=== PATIENT | female | born 1975 | race African-American/Black ===

== ENCOUNTER 2017-05-23 10:42 | Emergency (ER) | payer MEDICAID | END 2017-05-23 12:49 | disposition home or self-care (01) | LOC: D.ER 10:42 | DX: S70.02XA Contusion of left hip, initial encounter (principal); W01.0XXA Fall on same level from slipping, tripping and stumbling without subsequent striking against object, initial encounter; Y93.89 Activity, other specified; Y92.89 Other specified places as the place of occurrence of the external cause; F17.200 Nicotine dependence, unspecified, uncomplicated ==

== ENCOUNTER 2017-08-01 10:21 | Emergency (ER) | payer MEDICAID | END 2017-08-01 14:50 | disposition home or self-care (01) | LOC: D.ER 10:21 | DX: S16.1XXA Strain of muscle, fascia and tendon at neck level, initial encounter (principal); V43.52XA Car driver injured in collision with other type car in traffic accident, initial encounter; Y93.89 Activity, other specified; Y92.410 Unspecified street and highway as the place of occurrence of the external cause ==

== ENCOUNTER 2018-11-04 11:44 | Inpatient (IN) | payer MEDICAID ==
[~2018-11-04] VITALS: Ht 152.4 cm; Wt 68.6 kg
--- NOTE | ~2018-11-04 | EC ---
PATIENT:TRINIDAD NEWMAN DATE OF SERVICE: 11/05/18 SEX: F MEDICAL RECORD: [id number] DATE OF : [birth year] LOCATION:D. D.212 AGE OF PATIENT: 43 ADMISSION DATE: 11/05/18 REFERRING PHYSICIAN: INTERPRETING PHYSICIAN: PATRICIA JUAREZ MD ECHOCARDIOGRAM REPORT ECHO CHARGES 4 ECHO COMPLETE Date: 11/05/18 CLINICAL DIAGNOSIS: POSSIBLE CVA ECHOCARDIOGRAPHIC MEASUREMENTS (adult normal given) AC root (d.<3.7cm) 3.1 cm LV Septum d (<1.2 cm> 1.1 cm Valve Excursion 1.4 cm LV Septum (systole) 1.5 cm Left Atria (s.<4.0cm> 3.0 cm LVPW d(<1.2cm) 1. cm RV (d.<2.3cm) 3.6 cm LVPW (sytole) 1.7 cm LV diastole(<5.6CM) 4.1 cm MV E-F(>70mm/sec) cm LV systole 2.4 cm LVOT Diameter 1.6 cm MV exc.(>10mm) 1.5 cm Est.ejection fraction (50-75%) % DOPPLER: LVIT cm/sec A 80.0 cm/sec E 79.0 cm/sec LA cm/sec RVSP 32 mmHg LVOT 90 cm/sec AOP1/2T m/s Asc. Ao 134 cm/sec RVOT 44 cm/sec RA cm/sec PA 103 cm/sec AV Gradient Peak 7.14 mmHg AV Mean 4.34 mmHg AV Area 1.3 cm MV Gradient Peak 4.30 mmHg MV Mean 1.70 mmHg MV Area cm COMMENTS: Kaiako Kura [place]: 2 FUAD NICOLE Plunket Nurse: 1 Dr. Juarez TAPE# PACS Pericardial Effusion N DATE OF SERVICE: FINDINGS: 1. Left ventricular chamber size is within normal limits. Left ventricular systolic function is normal. Overall ejection fraction is estimated at 60%. 2. Left atrium, right atrium, and right ventricular chamber sizes are within normal limit. 3. Valvular structures have normal structure and motion. 4. Doppler interrogation reveals mild mitral regurgitation and mild tricuspid regurgitation. No other valvular insufficiency or stenosis. Pulmonary systolic ECHOCARDIOGRAM REPORT [id number] TRINIDAD NEWMAN pressure is normal, estimated at 32 mmHg. 5. No evidence of pericardial effusion or left ventricular thrombus. 6. No cardiac source of neurologic emboli. TRANSINT:[id number] Voice Confirmation ID: [id number] DOCUMENT ID: [id number] PATRICIA JUAREZ MD CC: [id number] DICTATION DATE: 11/06/18 1245 SUPPOSITORY MOLDING MACHINE OPERATOR: 11/06/18 1620 DIS IN 11/06/[address] [facility] [address] [place] [id number]
--- NOTE | ~2018-11-04 | MORECARE ---
CASE MANAGEMENT DISCHARGE SUMMARY PATIENT: TRINIDAD NEWMAN UNIT: [id number] ADM DATE: 11/05/18 AGE: 43 : [birth year] SEX: F ROOM/BED: D.6462 AUTHOR: AIMEE,DOC PHYSICIAN: REFERRING PHYSICIAN: LORI PAYTON MD DATE OF SERVICE: 11/06/18 Discharge Plan Patient Name: TRINIDAD NEWMAN Facility: [facility]:[place] : 1975 Planned Disposition: Home Anticipated Discharge Date: 11/06/18 Discharge Date: Expected LOS: 1 Initial Reviewer: [email or web address] Initial Review Date: 11/06/2018 Generated: 11/06/18 1:36 pm Comments DCP- Discharge Planning Updated by [email or web address]: Jocelyne Duarte on 11/06/18 11:[address] Patient Name: TRINIDAD NEWMAN Admission Status: ER Accout number: [id number] Admission Date: 11-05-2018 : 1975 Admission Diagnosis: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 STATES SHE NEEDS A CANE TO HELP WITH HER BALANCE. DME PUT IN FOR A CANE TO [facility]. ORDERS FAXED TO [facility]. PATIENT CAN INTEL RECRUITER FROM [facility] AT TIME OF DISCHARGE. CM WILL FOLLOW AND ASSIST NEEDED WITH DC PLANNING/NEEDS. Pace Analyst: Jocelyne Duarte DCPIA - Discharge Planning Initial Assessment Updated by [email or web address]: Jocelyne Duarte on 11/06/18 12:28 pm * Is the patient Alert and Oriented? Yes * PCP [facility] * Pharmacy [facility], DAUGHTER, * Preadmission Environment Home with Family * ADLs Independent * Equipment None * Community resources currently utilized None * Additional services required to return to the preadmission environment? No * Can the patient safely return to the preadmission environment? Yes * Has this patient been hospitalized within the prior 30 days at any hospital? No Last DP export: 11/06/18 11:27 Patient Name: TRINIDAD NEWMAN Page [id number] at 1236 All edits/amendments must be made on the electronic document DICTATION DATE: 11/06/18 1236 CLOTH MEASURER: SIXTO 11/06/18 1236 RPT#: [id number] DC DATE: STATUS: ADM IN [facility] [address] [place] [address] END OF REPORT
--- NOTE | ~2018-11-04 | MORECARE ---
CASE MANAGEMENT DISCHARGE SUMMARY PATIENT: TRINIDAD NEWMAN UNIT: [id number] ADM DATE: 11/05/18 AGE: 43 : [birth year] SEX: F ROOM/BED: D.3046 AUTHOR: AIMEEDOC PHYSICIAN: REFERRING PHYSICIAN: LORI PAYTON MD DATE OF SERVICE: 11/09/18 Discharge Plan Patient Name: TRINIDAD NEWMAN Facility: [facility]:[place] : 1975 Planned Disposition: Home Anticipated Discharge Date: 11/06/18 Discharge Date: 11/06/2018 Expected LOS: 1 Initial Reviewer: [email or web address] Initial Review Date: 11/06/2018 Generated: 11/09/18 12:21 pm Comments DCP- Discharge Planning Updated by [email or web address]: Jocelyne Duarte on 11/06/18 11:[address] Patient Name: TRINIDAD NEWMAN Admission Status: ER Accout number: [id number] Admission Date: 11-05-2018 : 1975 Admission Diagnosis: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 STATES SHE NEEDS A CANE TO HELP WITH HER BALANCE. DME PUT IN FOR A CANE TO [facility]. ORDERS FAXED TO [facility]. PATIENT CAN FORMING YARDAGE CONTROL OPERATOR FROM [facility] AT TIME OF DISCHARGE. CM WILL FOLLOW AND ASSIST NEEDED WITH DC PLANNING/NEEDS. Steel Welder: Jocelyne Duarte DCPIA - Discharge Planning Initial Assessment Updated by [email or web address]: Jocelyne Duarte on 11/06/18 12:28 pm * Is the patient Alert and Oriented? Yes * PCP [facility] * Pharmacy [facility], DAUGHTER, * Preadmission Environment Home with Family * ADLs Independent * Equipment None * Community resources currently utilized None * Additional services required to return to the preadmission environment? No * Can the patient safely return to the preadmission environment? Yes * Has this patient been hospitalized within the prior 30 days at any hospital? No Last DP export: 11/06/18 11:36 Patient Name: TRINIDAD NEWMAN Page [phone] at 1122 All edits/amendments must be made on the electronic document DICTATION DATE: 11/09/181120 WING COVERER: SIXTO 11/09/181120 RPT#: [id number] DC DATE:11/06/18 STATUS: DIS IN [facility] [address] [place] [address] END OF REPORT
--- NOTE | ~2018-11-04 | MORECARE ---
CASE MANAGEMENT DISCHARGE SUMMARY PATIENT: TRINIDAD NEWMAN UNIT: [id number] ADM DATE: 11/05/18 AGE: 43 : 77 SEX: F ROOM/BED: D.0620 AUTHOR: SHANNAN YU PHYSICIAN: REFERRING PHYSICIAN: LORI PAYTON MD DATE OF SERVICE: 11/06/18 Discharge Plan Patient Name: TRINIDAD NEWMAN Facility: [facility]:[place] : 1975 Planned Disposition: Home Anticipated Discharge Date: 11/06/18 Discharge Date: Expected LOS: 1 Initial Reviewer: [email or web address] Initial Review Date: 11/06/2018 Generated: 11/06/18 1:27 pm External Providers External Provider: RENÉQue [facility] Next Contact Date: Service Request Date: Service Type: Resolution: Reviewer: Comments: Patient Name: TRINIDAD NEWMAN Page 13459 at 1227 All edits/amendments must be made on the electronic document DICTATION DATE: 11/06/18 1227 WAITER/WAITRESS ROOM SERVICE: SIXTO 11/06/18 1227 RPT#: [id number] DC DATE: STATUS: ADM IN [facility] [address] [place] [address] END OF REPORT
[2018-11-04] MEDS ORDERED: NORCO 7.5/325 T1 TA1 PO (11:56)
[2018-11-04 12:45] VITALS: BP 134/84
[2018-11-04 12:59] LABS: HEMATOCRIT 34.5 % (36.0-48.0); HEMOGLOBIN 11.3 g/dL (12-16); LYMPHOCYTES 42.7 % (15-50); MCH 27.2 pg (26.0-34.0); MCHC 32.8 g/dL (31.0-37.0); MCV 82.9 fL (80.0-100.0); MEAN PLATELET VOLUME 10.1 fL (7.4-10.4); NEUTROPHILS 53.8 % (40-80); PLATELET COUNT 274 10x3/uL (130-400); RBC 4.16 10x6/uL (4.00-5.40); RDW 15.1 % (11.5-14.5); WBC 9.9 10x3/uL (4.8-10.8)
[2018-11-04 13:04] LABS: APTT 22.1 SECONDS (22.8-39.4); INR 0.99 (0.85-1.17); PROTIME 12.6 SECONDS (11.6-15.0)
[2018-11-04 13:45] VITALS: BP 130/82
[2018-11-04 13:58] LABS: ALBUMIN 3.4 g/dL (3.4-5.0); ALKALINE PHOSPHATASE 57 U/L (46-116); ALT (SGPT) 11 U/L (10-68); BILIRUBIN - TOTAL 0.13 mg/dL (0.2-1.3); CALC OSMOLALITY 278 mosm/kg (275-300); CALCIUM 9.1 mg/dL (8.5-10.1); CARBON DIOXIDE 28.6 mmol/L (21.0-32.0); CHLORIDE - SERUM 104 mmol/L (98-107); CREATININE - SERUM 0.9 mg/dL (0.6-1.3); GLUCOSE 88 mg/dL (74-106); POTASSIUM - SERUM 3.6 mmol/L (3.5-5.1); PROTEIN - SERUM 7.8 g/dL (6.4-8.2); SODIUM 141 mmol/L (136-145); UREA NITROGEN 9 mg/dL (7-18); eGFR NON AFRICAN AMERICAN 73 mL/min (90-120)
[2018-11-04 14:10] LABS: CKMB 0.2 U/L (0.0-3.6); CREATINE KINASE 66 UL (21-215); THYROID STIMULATING HORMONE 1.07 uIU/mL (0.36-3.74); TROPONIN-I < 0.017 ng/mL (0.000-0.060)
[2018-11-04 14:45] VITALS: BP 140/81
[2018-11-04 15:45] VITALS: BP 138/84
[2018-11-04] MEDS ORDERED: OMEPRAZOLE20 M1 PO (18:07)
[2018-11-04 18:30] VITALS: BP 129/79; BMI 28.3
[2018-11-04 20:00] VITALS: BP 114/72
[2018-11-05] VITALS: BP 109/62
[2018-11-05 04:56] VITALS: BP 112/68
[2018-11-05 05:10] LABS: BASOPHILS 0.3 % (0-2); EOSINOPHILS 2.3 % (0-7); HEMATOCRIT 30.5 % (36.0-48.0); HEMOGLOBIN 9.8 g/dL (12-16); IMMATURE GRANULOCYTES 0.5 % (0-5); LYMPHOCYTES 39.9 % (15-50); MCH 26.6 pg (26.0-34.0); MCHC 32.1 g/dL (31.0-37.0); MCV 82.9 fL (80.0-100.0); MEAN PLATELET VOLUME 9.9 fL (7.4-10.4); PLATELET COUNT 287 10x3/uL (130-400); RBC 3.68 10x6/uL (4.00-5.40); RDW 15.3 % (11.5-14.5); WBC 10.5 10x3/uL (4.8-10.8)
[2018-11-05 05:28] LABS: ANION GAP 12.8 mmol/L (8-16); BILIRUBIN - TOTAL 0.1 mg/dL (0.2-1.3); CALCIUM 8.5 mg/dL (8.5-10.1); CARBON DIOXIDE 26.9 mmol/L (21.0-32.0); POTASSIUM - SERUM 3.7 mmol/L (3.5-5.1); PROTEIN - SERUM 7.1 g/dL (6.4-8.2)
[2018-11-05 08:46] VITALS: BP 135/74
[2018-11-05 10:41] LABS: CHOL - HDL RATIO 3.2 ratio (2.3-4.1); LDL-HDL RATIO 1.2 ratio (1.5-3.5)
[2018-11-05 12:11] VITALS: Ht 152.4 cm; Wt 68.6 kg
[2018-11-05 12:43] VITALS: BP 121/73
[2018-11-05] MEDS ORDERED: ATARAX 25 MG TA25 MG PO (15:56)
[2018-11-05] MEDS ORDERED: OMEPRAZOLE40 MG PO (15:57)
[2018-11-05] MEDS ORDERED: COREG6.25 MG PO (15:58)
[2018-11-05] MEDS ORDERED: KLOR-CON M2020 MEQ PO (15:58)
[2018-11-05] MEDS ORDERED: LASIX40 MG PO (15:59)
[2018-11-05] MEDS ORDERED: ASPIRIN325 MG PO (16:00)
[2018-11-05] MEDS ORDERED: PRAVACHOL40 MG PO (16:01)
[2018-11-05] MEDS ORDERED: GLYBURIDE2.5 MG PO (16:02)
[2018-11-05] MEDS ORDERED: EFFIENT10 MG PO (16:03)
[2018-11-05 16:48] VITALS: BP 123/77
[2018-11-05 20:37] VITALS: BP 123/81
[2018-11-06 00:07] VITALS: BP 122/78
[2018-11-06 04:50] VITALS: BP 110/71
[2018-11-06 09:03] VITALS: BP 110/53
[2018-11-06 10:04] LABS: APPEARANCE TURBID (CLEAR); BILIRUBIN NEGATIVE (NEGATIVE); COLOR RED (YELLOW); GLUCOSE NEGATIVE (NEGATIVE); KETONE NEGATIVE (NEGATIVE); NITRITE NEGATIVE (NEGATIVE); PROTEIN 3+ mg/dL (NEGATIVE); SPECIFIC GRAVITY 1.015 (1.005-1.020); UROBILINOGEN NORMAL (NORMAL)
[2018-11-06] MEDS ORDERED: ASPIRIN325 MG PO (10:05)
[2018-11-06] MEDS ORDERED: LIPITOR20 MG PO (10:05)
[2018-11-06 10:07] LABS: BACTERIA FEW /hpf (NONE SEEN); EPITHELIAL CELLS 0-5 /hpf (0-5); MUCUS <1+ /lpf (NONE SEEN); RED CELLS - URINE >50 /hpf (0-5); WHITE CELLS - URINE 0-5 /hpf (0-5)
[2018-11-06 10:13] LABS: UDS - AMPHET NEGATIVE QUAL (NEGATIVE); UDS - BARB NEGATIVE QUAL (NEGATIVE); UDS - BENZO NEGATIVE QUAL (NEGATIVE); UDS - COCAINE NEGATIVE QUAL (NEGATIVE); UDS - OPIATE POSITIVE QUAL (NEGATIVE); UDS - PCP NEGATIVE QUAL (NEGATIVE); UDS - THC NEGATIVE QUAL (NEGATIVE)
[2018-11-06 12:12] VITALS: BP 118/73
== END 2018-11-06 13:47 | disposition home or self-care (01) | DRG 65 ==
LOC: D.ER 11:44 → D.EDHOLD 12:40 → D.M2 15:42 → D.EDHOLD 15:42 → OBSVTIME 15:43 → D.M2 16:52
PROVIDERS: Family Medicine; Internal Medicine Nephrology
DX: I63.81 Other cerebral infarction due to occlusion or stenosis of small artery (principal); F17.213 Nicotine dependence, cigarettes, with withdrawal; I69.351 Hemiplegia and hemiparesis following cerebral infarction affecting right dominant side; D64.9 Anemia, unspecified; K21.9 Gastro-esophageal reflux disease without esophagitis; G89.29 Other chronic pain; M54.9 Dorsalgia, unspecified

== ENCOUNTER 2020-05-18 07:56 | Emergency (ER) | payer MEDICAID ==
[~2020-05-18] VITALS: Ht 149.9 cm; Wt 68.2 kg
[~2020-05-18 07:56] MED LIST: ASPIRIN325 MG PO; ATARAX 25 MG TA25 MG PO; COREG6.25 MG PO; EFFIENT10 MG PO; GLYBURIDE2.5 MG PO; KLOR-CON M2020 MEQ PO; LASIX40 MG PO; LIPITOR20 MG PO; NORCO 7.5/325 T1 TA1 PO; OMEPRAZOLE20 M1 PO; OMEPRAZOLE40 MG PO; PRAVACHOL40 MG PO
[2020-05-18 08:03] VITALS: Ht 149.9 cm; Wt 68.2 kg
[2020-05-18] MEDS ORDERED: GABAPENTIN300 MG PO (08:07)
[2020-05-18] MEDS ORDERED: ALBUTEROL SULF8.5 GM INH (08:09)
[2020-05-18 08:35] LABS: BASOPHILS 0.3 % (0-2); EOSINOPHILS 1.9 % (0-7); HEMATOCRIT 31.1 % (36.0-48.0); HEMOGLOBIN 9.6 g/dL (12-16); IMMATURE GRANULOCYTES 0.3 % (0-5); LYMPHOCYTES 28.8 % (15-50); MCH 25.4 pg (26.0-34.0); MCHC 30.9 g/dL (31.0-37.0); MCV 82.3 fL (80.0-100.0); MEAN PLATELET VOLUME 9.1 fL (7.4-10.4); MONOCYTES 8.1 % (2-11); NEUTROPHILS 60.6 % (40-80); PLATELET COUNT 283 10x3/uL (130-400); RBC 3.78 10x6/uL (4.00-5.40); RDW 16.7 % (11.5-14.5)
[2020-05-18 08:54] LABS: CALC OSMOLALITY 270 mosm/kg (275-300); CALCIUM 8.6 mg/dL (8.5-10.1); CHLORIDE - SERUM 102 mmol/L (98-107); CREATININE - SERUM 0.9 mg/dL (0.6-1.3); GLUCOSE 90 mg/dL (74-106); POTASSIUM - SERUM 3.4 mmol/L (3.5-5.1); SODIUM 136 mmol/L (136-145); UREA NITROGEN 10 mg/dL (7-18); eGFR NON AFRICAN AMERICAN 72 mL/min (90-120)
[2020-05-18 08:55] LABS: APTT 27.9 SECONDS (22.8-39.4); INR 0.98 (0.85-1.17)
[2020-05-18 09:05] LABS: ALBUMIN 3.6 g/dL (3.4-5.0); ALKALINE PHOSPHATASE 81 U/L (30-120); ALT (SGPT) 18 U/L (10-68); BILIRUBIN - TOTAL 0.36 mg/dL (0.2-1.3); CKMB 0.6 U/L (0.0-3.6); CREATINE KINASE 172 UL (21-215); PROTEIN - SERUM 7.8 g/dL (6.4-8.2); THYROID STIMULATING HORMONE 1.22 uIU/mL (0.36-3.74)
[2020-05-18 09:06] LABS: TROPONIN-I < 0.017 ng/mL (0.000-0.060)
[2020-05-18 12:18] VITALS: BP 121/76
== END 2020-05-18 12:18 | disposition other institution (70) ==
LOC: D.ER 07:56
PROVIDERS: Family Medicine
DX: R29.810 Facial weakness (principal); Z86.73 Personal history of transient ischemic attack (TIA), and cerebral infarction without residual deficits; R53.83 Other fatigue; R53.1 Weakness; E07.9 Disorder of thyroid, unspecified; K21.9 Gastro-esophageal reflux disease without esophagitis